=== PATIENT | female | born 1985 | race Caucasian/White ===

== ENCOUNTER 2024-10-06 06:29 | Emergency (ER) | payer OTHER ==
[2024-10-06 06:46] VITALS: TEMP 98.6; BMI 25.6
[2024-10-06 08:00] LABS: ABSOLUTE IMMATURE GRANULOCYTES 0.03 x10^3/uL (0.0-0.031); BASOPHILS # 0.08 x10^3/uL (0.01-0.08); EOSINOPHIL % 2.9 % (0.7-5.8); EOSINOPHILS # 0.29 x10^3/uL (0.04-0.36); HEMATOCRIT 38.5 % (34.1-44.9); HEMOGLOBIN 12.1 g/dL (11.2-15.7); MCHC 31.4 g/dl (32.2-35.5); MEAN CELL VOLUME 90.2 fl (79.4-94.8); MONOCYTE # 0.54 x10^3/uL (0.24-0.86); MONOCYTE % 5.3 % (4.7-12.5); PLATELET COUNT 258 x10^3/uL (182-369); RDW 13.9 % (12.2-17.1)
[2024-10-06 08:04] LABS: EPI CELLS 10 /uL (0-25.1); HYALINE CASTS 0 /uL (0-3.1); PH,URINE 5.5 (5.0-8.0); URINE APPEARANCE CLEAR; URINE BACTERIA 110 /uL (0-1359); URINE BILIRUBIN NEGATIVE (NEGATIVE); URINE COLOR YELLOW; URINE GLUCOSE (UA) NEGATIVE (NEGATIVE); URINE KETONE NEGATIVE (NEGATIVE); URINE LEUK ESTERASE NEGATIVE (NEGATIVE); URINE NITRITE NEGATIVE (NEGATIVE); URINE PROTEIN TRACE (NEGATIVE); URINE UROBILINOGEN 0.2 mg/dL (0.2-1.0); URINE WBC 19 /uL (0-25.8)
[2024-10-06 08:07] LABS: INR 0.99 (0.83-1.09); PROTHROMBIN TIME (PATIENT) 10.8 SEC (9.7-13.0)
[2024-10-06 08:10] LABS: ACTIVATED PTT 28.7 SECONDS (25.2-36.5)
[2024-10-06 08:16] LABS: HCG,QUALITATIVE URINE Borderline hCG level
[2024-10-06 08:21] LABS: URINE RBC 87.1 /uL (0-23.9)
[2024-10-06 08:21] LABS: CALCIUM 9.4 mg/dL (8.5-10.1)
[2024-10-06 08:22] LABS: ALBUMIN 3.5 g/dl (3.4-5.0); BLOOD UREA NITROGEN 14.2 mg/dL (7-18); MAGNESIUM 1.9 mg/dL (1.8-2.4)
[2024-10-06 08:25] LABS: CREATININE 0.6 mg/dL (0.55-1.3)
[2024-10-06 08:27] LABS: BILIRUBIN,TOTAL 0.3 mg/dL (0.2-1); TOT PROT 6.8 g/dl (6.4-8.2)
[2024-10-06] MEDS ORDERED: ACETAMINOPHEN 325 MG TABLET (FP) ONE (09:23)
[2024-10-06] MEDS: ACETAMINOPHEN 325 MG TABLET (FP) PO ONE (09:25)
[2024-10-06 12:55] VITALS: BP 110/70; PULSE 70; RESP 15
[2024-10-06 13:01] LABS: HCV DIAGNOSTIC IN-HOUSE W/RFLX NON-REACTIVE (NONREACTIVE); HIV INTERPRETATION NEGATIVE (NEGATIVE)
== END 2024-10-06 12:56 | disposition home or self-care (01) ==
LOC: JER 06:29
DX: N83.201 Unspecified ovarian cyst, right side (principal); R10.30 Lower abdominal pain, unspecified; M25.511 Pain in right shoulder
CPT/HCPCS: 36415; 76817-TC; 80053; 81003; 83735; 84702; 84703; 85025; 85610; 85730; 86803; 86850; 86900; 86901; 87086; 87389; 93005; 93010; 99285-25